=== PATIENT | male | born 1990 | race Caucasian/White ===

== ENCOUNTER 2024-12-28 09:27 | Emergency (ER) | payer OTHER ==
[~2024-12-28] VITALS: Ht 180.3 cm; Wt 75.0 kg
--- OUTSIDE RECORDS SUMMARY | 2024-12-28 10:25 | XMS ---
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 E.DMena VISIT COUNT (12 MO.) 1 Trevor Rodriguez [facility] [address] 1 [facility] 1 [facility] 1 [facility] 1 [place] TOTAL 5 NOTE: Visits indicate total known visits. ED/UCC VISIT TRACKING (12 MO.) 12/28/2024 09:28 [facility] [place] TYPE: Emergency COMPLAINT: - HEADACHE 12/22/2024 22:07 [facility] [place] TYPE: Emergency DIAGNOSES: - Other psychoactive substance abuse, uncomplicated - general 07/30/2024 17:12 [facility] [place] Av TYPE: Emergency DIAGNOSES: - Alcohol use, unspecified with intoxication, uncomplicated - Delusional disorders - Other stimulant use, unspecified with intoxication, unspecified - Unspecified psychosis not due to a substance or known physiological condition - mental distress. hearing things - Suicidal 05/31/2024 09:35 [facility] [place] TYPE: Psychiatric Emergency DIAGNOSES: - Other stimulant use, unspecified, uncomplicated - Unspecified psychosis not due to a substance or known physiological condition - Sujata ANDRES 05/30/2024 12:06 [facility] Veneg[facility] TYPE: Emergency DIAGNOSES: - Auditory hallucinations - Mental Health Evaluation INPATIENT VISIT TRACKING (12 MO.) No inpatient visits to display in this time frame [email or web address]
[2024-12-28] MEDS ORDERED: diazePAM 5 MG TAB PO ONE (10:30)
[2024-12-28] MEDS ORDERED: ACETAMINOPHEN 500 MG TAB PO ONE (10:30)
[2024-12-28] MEDS ORDERED: IBUPROFEN 600 MG TAB PO ONE (10:30)
[2024-12-28 11:40] VITALS: BP 102/71
== END 2024-12-28 11:40 | disposition home or self-care (01) ==
LOC: ED 09:27
DX: R51.9 Headache, unspecified (principal); F15.10 Other stimulant abuse, uncomplicated
CPT/HCPCS: 70450; 99283-25; A9270

== ENCOUNTER 2024-12-30 12:39 | Emergency (ER) | payer OTHER ==
[~2024-12-30] VITALS: Ht 180.3 cm; Wt 75.6 kg
--- OUTSIDE RECORDS SUMMARY | 2024-12-30 12:46 | XMS ---
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 - 2 Visits in 30 Days CARE PROVIDERS Flights, [facility] Current PHONE: [phone] [facility] has no Care Guidelines for this patient. E.D. VISIT COUNT (12 MO.) [address] [facility] 1 [facility] [address] [facility] Ley 1 [place] TOTAL 6 NOTE: Visits indicate total known visits. ED/UCC VISIT TRACKING (12 MO.) 12/30/2024 12:40 [facility] [place] TYPE: Emergency COMPLAINT: - SUICIDAL IDEATIONS 12/28/2024 09:28 [facility] [place] TYPE: Emergency COMPLAINT: - HEADACHE DIAGNOSES: - Headache, unspecified - Other stimulant abuse, uncomplicated 12/22/2024 22:07 [facility] [place] TYPE: Emergency DIAGNOSES: - Other psychoactive substance abuse, uncomplicated - general 07/30/2024 17:12 Trevor Rodriguez [facility] JESSICA Ley TYPE: Emergency DIAGNOSES: - Alcohol use, unspecified with intoxication, uncomplicated - Delusional disorders - Other stimulant use, unspecified with intoxication, unspecified - Unspecified psychosis not due to a substance or known physiological condition - mental distress. hearing things - Suicidal 05/31/2024 09:35 [facility] TYPE: Psychiatric Emergency DIAGNOSES: - Other stimulant use, unspecified, uncomplicated - Unspecified psychosis not due to a substance or known physiological condition - Sujata ANDRES 05/30/2024 12:06 [facility] Ven[facility] [place] JESSICA Ley TYPE: Emergency DIAGNOSES: - Auditory hallucinations - Mental Health Evaluation INPATIENT VISIT TRACKING (12 MO.) No inpatient visits to display in this time frame [email or web address]
[2024-12-30 13:28] LABS: BASOPHILS 0.4 % (0-2); EOSINOPHILS 2.4 % (0-6); HEMATOCRIT 43.2 % (35.0-50.0); HEMOGLOBIN 14.8 g/dL (12.0-18.0); LYMPHOCYTES 14.1 % (24-44); MCH 28.6 (27-36); MCHC 34.4 g/dl (30-36); MCV 83.3 fl (81-99); MONOCYTES 5.4 % (0-12); NEUTROPHILS 77.7 % (39-80); PLATELET COUNT 405 K/uL (140-440); RBC 5.19 M/ul (4.3-5.7); RDW 14.8 (10.5-15.0)
[2024-12-30 14:11] LABS: ACETAMINOPHEN 0 ug/mL (10-30); ALBUMIN 3.9 g/dL (3.4-5.0); ALBUMIN/GLOBULIN RATIO 1.26 (1.1-2.4); ALCOHOL, MEDICAL <3 ng/dL (<3); ALKALINE PHOSPHATASE 85 U/L (46-116); ALT (SGPT) 21 U/L (14-59); ANION GAP 8.4 (7-21); AST (SGOT) 9 U/L (15-37); BILIRUBIN, TOTAL 0.3 mg/dL (0.2-1.0); BUN/CREATININE RATIO 11.25 (6.0-28.6); CALCIUM 9.3 mg/dL (8.5-10.1); CARBON DIOXIDE 31 mmol/L (21-32); CHLORIDE 106 mmol/L (98-107); GLOMERULAR FILTRATION RATE,EST 119 mL/min (>60); POTASSIUM 4.4 mmol/L (3.5-5.1); SALICYLATE 0.9 mg/dL (2.8-20.0); TSH, 3RD GENERATION 0.948 uIU/mL (0.358-3.740); UREA NITROGEN 9 mg/dL (7-18)
[2024-12-30 14:11] LABS: BILIRUBIN, URINE NEGATIVE (negative); BLOOD/HGB, URINE TRACE-I (Negative); KETONE, URINE NEGATIVE (Negative); LEUK ESTERASE, URINE NEGATIVE (negative); NITRITE, URINE NEGATIVE (negative); PH, URINE 6.5 (5-7)
[2024-12-30 14:13] LABS: CRYSTALS, URINE AMORPHOUS PHOSPH 4+ (0-1+); EPITHELIAL CELLS, URINE SQUAMOUS 1+ /lpf (0-1+); RED BLOOD CELLS, URINE 0-1 /hpf (0-5); REFLEX CULTURE, URINE No (No); WHITE BLOOD CELLS, URINE 0-1 /HPF (0-5)
[2024-12-30 14:20] LABS: AMPHETAMINES, URINE NEGATIVE (NEGATIVE); BARBITURATES, URINE NEGATIVE (NEGATIVE); BENZODIAZEPINE, URINE POSITIVE (NEGATIVE); BUPRENORPHINE, URINE NEGATIVE (NEGATIVE); CANNABINOID, URINE NEGATIVE (NEGATIVE); COCAINE, URINE NEGATIVE (NEGATIVE); ECSTASY, URINE NEGATIVE (NEGATIVE); FENTANYL, URINE NEGATIVE (NEGATIVE); METHADONE, URINE NEGATIVE (NEGATIVE); OPIATES, URINE NEGATIVE (NEGATIVE); OXYCODONE, URINE NEGATIVE (NEGATIVE); PHENCYCLIDINE, URINE NEGATIVE (NEGATIVE)
[2024-12-30] MEDS ORDERED: ACETAMINOPHEN 500 MG TAB PO ONE (23:45)
[2024-12-31 07:24] VITALS: BP 138/93
== END 2024-12-31 07:24 | disposition other institution, planned readmission (95) ==
LOC: ED 12:39
PROVIDERS: Emergency Medicine
DX: R45.851 Suicidal ideations (principal); F15.10 Other stimulant abuse, uncomplicated; G43.909 Migraine, unspecified, not intractable, without status migrainosus; Z53.29 Procedure and treatment not carried out because of patient's decision for other reasons
CPT/HCPCS: 36415; 80053; 80307; 81001; 84443; 85025; 99284; A9270; G0480

== ENCOUNTER 2025-02-13 16:52 | Emergency (ER) | payer OTHER ==
[~2025-02-13] VITALS: Ht 180.3 cm; Wt 77.5 kg
[2025-02-13 18:15] LABS: BASOPHILS 0.4 % (0.2-1.2); EOSINOPHILS 6.5 % (0.8-7.0); HEMATOCRIT 41.2 % (40.1-51.0); HEMOGLOBIN 13.8 g/dL (13.7-17.5); LYMPHOCYTES 17.9 % (21.8-53.1); MCHC 33.5 g/dL (32.3-36.5); MCV 83.7 fL (79.0-92.2); MONOCYTES 6.1 % (5.3-12.2); NEUTROPHILS 68.8 % (34.0-67.9); PLATELET COUNT 378 K/uL (163-337); RBC 4.92 M/uL (4.63-6.08)
[2025-02-13] MEDS ORDERED: BUPRENORPHIN-N1 EACH SL (18:29)
[2025-02-13 18:31] LABS: ALBUMIN 3.5 g/dL (3.4-5.0); ALBUMIN/GLOBULIN RATIO 0.97 (1.1-2.4); ANION GAP 8.9 (7-21); BILIRUBIN, TOTAL 0.4 mg/dL (0.2-1.0); BUN/CREATININE RATIO 14.7 (6.0-28.6); CALCIUM 8.9 mg/dL (8.5-10.1); CREATININE, SERUM 0.68 mg/dL (0.70-1.30); POTASSIUM 3.9 mmol/L (3.5-5.1); PROTEIN, TOTAL 7.1 g/dL (6.4-8.2)
[2025-02-13 18:41] LABS: BILIRUBIN, URINE NEGATIVE (negative); BLOOD/HGB, URINE SMALL (Negative); KETONE, URINE NEGATIVE (Negative); LEUK ESTERASE, URINE NEGATIVE (negative); NITRITE, URINE NEGATIVE (negative)
[2025-02-13 18:48] LABS: WHITE BLOOD CELLS, URINE 0-1 /HPF (0-5)
[2025-02-13 18:49] LABS: BACTERIA, URINE NONE SEEN /hpf (negative); CASTS, URINE NONE SEEN \\lpf; COLLECTION TYPE, URINE CLEAN CATCH; CRYSTALS, URINE NONE SEEN (0-1+); EPITHELIAL CELLS, URINE NONE SEEN /lpf (0-1+); REFLEX CULTURE, URINE No (No)
[2025-02-13] MEDS ORDERED: MIRALAX119 GM PO (19:57)
[2025-02-13 20:06] VITALS: BP 127/95
== END 2025-02-13 20:06 | disposition home or self-care (01) ==
LOC: ED 16:52
PROVIDERS: Emergency Medicine
DX: R10.31 Right lower quadrant pain (principal); Z79.899 Other long term (current) drug therapy
CPT/HCPCS: 36415; 80053; 81001; 83690; 85025; 99284